=== PATIENT | male | born 1995 | race Caucasian/White ===

== ENCOUNTER → 2017-04-19 12:44 | Outpatient (CLI) | payer BC | END | disposition home or self-care (01) | LOC: D.NM 12:44 | DX: R10.11 Right upper quadrant pain (principal) ==

== ENCOUNTER 2019-05-01 08:45 | Day surgery (SDC) | payer BC ==
[~2019-05-01] VITALS: Ht 175.3 cm; Wt 172.4 kg
[~2019-05-01 08:45] MED LIST: ADIPEX-P37.5 M1; LIPITOR10 MG; LISINOPRIL10 MG PO; OMEPRAZOLE40 MG PO; TIROSINT88 MCG
[2019-05-01 09:15] LABS: HEMATOCRIT 42.7 % (42.0-54.0); MCH 29.5 pg (26.0-34.0); MCHC 32.8 g/dL (31.0-37.0); MCV 89.9 fL (80.0-100.0); MEAN PLATELET VOLUME 10.4 fL (7.4-10.4); RBC 4.75 10x6/uL (4.20-6.10); WBC 6.6 10x3/uL (4.8-10.8)
[2019-05-01 10:09] VITALS: BP 123/72; Ht 175.3 cm; Wt 172.4 kg
[2019-05-01] MEDS ORDERED: HYDROCODON-ACE1 EAC7 PO (14:08)
== END 2019-05-01 16:20 | disposition home or self-care (01) ==
LOC: D.OPS 08:45 → D.PAN 10:45 → D.OPS 16:20
PROVIDERS: Anesthesiology; ATTEND Surgery
DX: K82.8 Other specified diseases of gallbladder (principal); E66.9 Obesity, unspecified; Z68.43 Body mass index [BMI] 50.0-59.9, adult; I10 Essential (primary) hypertension